=== PATIENT | male | born 1980 | race Two or more races ===

== ENCOUNTER 2020-10-10 18:41 | Emergency (ER) | payer OTHER ==
[~2020-10-10] VITALS: Ht 165.1 cm; Wt 73.0 kg
--- NOTE | 2020-10-10 18:55 | NUR ---
CC OF DROWSYNESS AND MAGUIRE AFTER TAKING X 8 TABS OF 300 MG OXCARBAZEPINE AT 3 PM. PT DENYING SI AND STATES HE WAS IN PAIN AND JUST WANTED TO FEEL BETTER. PT IN CUSTODY AND REPORTED TO GUARDS. PT AWAKE AND ALERT, 99% ON RA.
--- NOTE | 2020-10-10 20:27 | NUR ---
PT RESTING IN [facility], NO NEEDS AT THIS TIME.
[2020-10-10 20:55] VITALS: BP 136/85
== END 2020-10-10 20:57 | disposition home or self-care (01) ==
LOC: ED 19:20
DX: Z00.00 Encounter for general adult medical examination without abnormal findings (principal); G40.909 Epilepsy, unspecified, not intractable, without status epilepticus
CPT/HCPCS: 99283